=== PATIENT | female | born 1970 | race Caucasian/White ===

== ENCOUNTER 2017-08-07 09:43 | Outpatient (CLI) | payer OTHER | END 2017-08-07 09:44 | disposition home or self-care (01) | LOC: CONVCARE 09:43 | PROVIDERS: ATTEND Orthopaedic Surgery | DX: G56.03 Carpal tunnel syndrome, bilateral upper limbs (principal); M65.311 Trigger thumb, right thumb | CPT/HCPCS: 73140 ==

== ENCOUNTER 2017-09-04 07:55 | Day surgery (SDC) | payer OTHER ==
[2017-09-04] MEDS ORDERED: MIDAZOLAM 2 MG/2 ML SOL ONE (08:40)
[2017-09-04] MEDS ORDERED: CEFAZOLIN SODIUM 1 GM PDS ONE (08:40)
[2017-09-04] MEDS ORDERED: PROPOFOL 10 MG/ML EMU IV ONE (08:40)
[2017-09-04] MEDS ORDERED: FENTANYL 100MCG/2ML SOL ONE (08:40)
[2017-09-04] MEDS ORDERED: ONDANSETRON HCL 4 MG/2 ML SOL ONE (09:24)
[2017-09-04] MEDS: LIDOCAINE HCL 1% MPF SOL ONE ×2 (09:35→09:36)
[2017-09-04] MEDS ORDERED: KETOROLAC TROMETHAMINE 30 MG/ML SOL ONE (10:03)
[2017-09-04 11:19] VITALS: BP 122/68; PULSE 74; RESP 20; TEMP 97.8; O2SAT 95
== END 2017-09-04 11:55 | disposition home or self-care (01) ==
LOC: SURG 07:55
PROVIDERS: ATTEND Orthopaedic Surgery
DX: G56.01 Carpal tunnel syndrome, right upper limb (principal); M65.311 Trigger thumb, right thumb
CPT/HCPCS: 84703; J0690; J1885; J2250; J2405; J3010; A6402; J2001; J2704

== ENCOUNTER 2017-10-09 08:51 | Day surgery (SDC) | payer OTHER ==
[2017-10-09] MEDS ORDERED: PROPOFOL 500 MG/50 ML EMU IV ONE (09:58)
[2017-10-09] MEDS ORDERED: FENTANYL 100MCG/2ML SOL ONE (09:58)
[2017-10-09] MEDS ORDERED: LIDOCAINE HCL 1% MPF SOL ONE (10:33)
[2017-10-09] MEDS ORDERED: CEFAZOLIN SODIUM 1 GM PDS ONE (11:23)
[2017-10-09] MEDS ORDERED: ONDANSETRON HCL 4 MG/2 ML SOL ONE (11:23)
[2017-10-09 11:59] VITALS: O2SAT 96
[2017-10-09] MEDS ORDERED: KETOROLAC TROMETHAMINE 30 MG/ML SOL ONE (12:17)
[2017-10-09] MEDS ORDERED: KETOROLAC TROMETHAMINE 30 MG/ML SOL IV ONE (12:22)
[2017-10-09 12:58] VITALS: BP 121/77; PULSE 73; RESP 16; TEMP 97.6
== END 2017-10-09 12:55 | disposition home or self-care (01) ==
LOC: SURG 08:51
PROVIDERS: ATTEND Orthopaedic Surgery
DX: G56.02 Carpal tunnel syndrome, left upper limb (principal); M65.312 Trigger thumb, left thumb
CPT/HCPCS: J0690; J1885; J2405; J3010; A6402; J2001; J2704